=== PATIENT | female | born 1975 | race Hispanic/Latino ===

== ENCOUNTER → 2020-01-20 12:45 | Outpatient (ROUT) | payer OTHER, MEDICAID, SELFPAY ==
[2020-01-21 01:18] LABS: COVID19 Sendout Not Detected (Not Detect)
== END ==
PROVIDERS: Visit Provider Physician Assistant
DX: Z01.812 Encounter for preprocedural laboratory examination (principal)
CPT/HCPCS: 87635

== ENCOUNTER 2020-01-24 13:49 | Emergency (ER) | payer OTHER, MEDICAID, SELFPAY ==
[2020-01-24 13:55] VITALS: BP 142/71; PULSE 74; RESP 20; TEMP 36.7; O2SAT 98; BMI 38.3
--- NOTE | 2020-01-24 14:07 | DI.RAD.S_ITS ---
PROCEDURE: XR CHEST 2V INDICATIONS: shortness of breath TECHNIQUE: 2 views of the chest were acquired. COMPARISON: [facility], CR, XR CHEST 2 VIEWS, 11/18/2019, 14:06. FINDINGS: Surgical changes and devices: None. Lungs and pleura: Lungs are clear. No pleural effusions or pneumothorax. Mediastinum: Mediastinal contours are normal. Heart size is normal. Bones and chest wall: No suspicious bony abnormalities. Soft tissues appear unremarkable. IMPRESSION: Stable chest. No acute cardiopulmonary process is evident. Dictated by: Christopher Springer M.D. on 01/24/2020 at 13:30 Approved by: Christopher Springer M.D. on 01/24/2020 at 13:30
[2020-01-24 14:32] LABS: Add Manual Diff / Slide Review NO; Basophils Absolute Auto 0 /uL (0-100); Basophils Percent Auto 0.4 % (0-2); Eosinophils Absolute Auto 600 /uL (0-450); Eosinophils Percent Auto 7.9 % (2-4); Hematocrit 38.7 % (36-46); Lymphocytes Absolute Auto 3100 /uL (1100-4500); Lymphocytes Percent Auto 38.9 % (25-40); Mean Corpuscular HGB Conc 33.6 % (30-36); Mean Corpuscular Hemoglobin 29.6 PG (26-34); Mean Corpuscular Volume 88.1 fL (80-100); Monocytes Absolute Auto 600 /uL (0-900); Monocytes Percent Auto 8.1 % (3-14); Neutrophils Absolute Auto 3600 /uL (1500-7000); Neutrophils Percent Auto 44.7 % (50-75); Platelet Count 274 X10^3/uL (150-400); Red Blood Cell Count 4.39 X10^6/uL (4.0-5.2); Red Cell Distribution Width 13.3 % (11.6-14.8)
[2020-01-24 14:44] LABS: Alanine Aminotransferase 47 IU/L (<35); Albumin Globulin Ratio 1.3 (1.0-2.8); Alkaline Phosphatase 66 U/L (38-126); Aspartate Aminotransferase 41 IU/L (14-36); BUN Creatinine Ratio 16.4 (6-22); Bilirubin Total 0.5 mg/dL (0.2-1.3); Blood Urea Nitrogen 12 mg/dL (7-17); Calcium 9.2 mg/dL (8.4-10.2); Carbon Dioxide 26 mmol/L (22-32); Chloride 105 mmol/L (98-107); Creatine Kinase 109 U/L (30-135); Estimated Glomerular Filt Rate > 60.0 mL/min (>60); Globulin 3.1 g/dL (1.7-4.1); Glucose 114 mg/dL (70-100); HEMOLYSIS 44 (0-50); Potassium 4.2 mmol/L (3.4-5.1); Sodium 137 mmol/L (137-145); Total Protein 7.1 g/dL (6.3-8.2)
[2020-01-24 14:56] LABS: NT-proBNP (BNP-Adult 18+) 125 pg/mL (<125); Troponin I < 0.012 ng/mL (0.01-0.034)
[2020-01-24 14:59] LABS: CKMB % Relative Index 1.2 % (1.5-5.0); Creatine Kinase MB 1.33 ng/mL (<2.37)
[2020-01-24 15:00] VITALS: BP 142/67; PULSE 66; RESP 25; O2SAT 99
[2020-01-24 15:27] LABS: Bacteria Urine None Seen; RBC Urine None Seen (0-5/HPF); WBC Urine None Seen (0-5/HPF)
[2020-01-24 15:30] VITALS: BP 139/74; PULSE 60; RESP 23; O2SAT 96
[2020-01-24 15:37] LABS: Culture Indicated Urine Cult Not Indicated
[2020-01-24 15:42] LABS: TSH w/ Reflex to FT4 0.68 uIU/mL (0.47-4.68)
[2020-01-24 16:05] LABS: D Dimer < 200 ng/mL (<230)
[2020-01-24] MEDS: FUROSEMIDE 20 MG/2 ML VIAL IV (16:12)
[2020-01-24 16:53] VITALS: BP 153/73; PULSE 70; RESP 11; O2SAT 100
[2020-01-24 16:56] LABS: Creatine Kinase 106 U/L (30-135)
[2020-01-24 17:09] LABS: Troponin I < 0.012 ng/mL (0.01-0.034)
[2020-01-24 17:11] LABS: CKMB % Relative Index 1.3 % (1.5-5.0); Creatine Kinase MB 1.33 ng/mL (<2.37)
[2020-01-24 17:36] VITALS: BP 144/73; PULSE 68; RESP 17; O2SAT 97
[2020-01-24 18:00] VITALS: BP 153/80; PULSE 76; RESP 16; O2SAT 98
--- NOTE | 2020-01-24 20:27 | ED.SOB ---
HPI - SOB/Dyspnea <AUSTIN Monet - Last Filed: 01/24/20 20:35> General Chief Complaint: Shortness of Breath/Dyspnea Stated Complaint: sent from the [facility], SOB, fluid retention in legs Time Seen by Provider: 01/24/20 13:59 Source: patient Mode of arrival: Ambulatory Limitations: no limitations History of Present Illness HPI Narrative: The patient is a 44-year-old female nonsmoker with history of hypothyroid who presents with a chief complaint of shortness of breath as well as bilateral lower extremity swelling since Wednesday. She had this happen after she went on a camping trip, she states that was only up to [place]. She denies any flights immobility or cancer treatment. She has recently tested negative for coronavirus, as she was being worked up for sleep study. She denies any fevers chills. She denies any cough or congestion. She states she under large amount of stress at home right now. She has not taken anything to feel better. She has not noticed any edema anywhere else other than her feet. Related Data Previous Rx's Medication Instructions Recorded furosemide 20 mg PO QAM #14 tab 01/24/20 Allergies Allergy/AdvReac Type Severity Reaction Status Date / Time amoxicillin Allergy Unknown Verified 01/24/20 14:06 Penicillins Allergy Unknown Verified 01/24/20 14:06 Review of Systems <AUSTIN Monet - Last Filed: 01/24/20 20:35> Review of Systems Narrative: GENERAL: Denies chills, fatigue, malaise, fever, sweats. HEENT: Denies sinus pain, ear pain, sore throat, difficulty swallowing, dizziness. RESPIRATORY: See HPI CARDIOVASCULAR: Denies chest pain, palpitations, orthopnea, edema, GASTROINTESTINAL: Denies nausea, vomiting, abdominal pain, diarrhea, constipation, melena. : Denies dysuria, frequency, incontinence, hematuria, urinary retention. MUSCULOSKELETAL: See HPI SKIN: Denies rash, skin lesions, or other NEUROLOGIC: Denies weakness, headache, numbness, change in speech, confusion, seizures, incoordination. PSYCHIATRIC: No concerning psychosocial issues. 12 point review of systems is negative except for those stated above Patient History <AUSTIN Monet - Last Filed: 01/24/20 20:35> Medical History Endometrial adenocarcinoma (Acute) Excessive daytime sleepiness (Chronic) Fatigue (Chronic) GERD (gastroesophageal reflux disease) (Acute) Hypothyroidism (Chronic) Obstructive sleep apnea (Chronic) Perennial allergic rhinitis (Chronic) Surgical History History of radical hysterectomy (Acute) Social History Smoking Status: Former smoker Smoking Status: Former smoker alcohol intake frequency: 0-2 drinks per day Substance Use Type: does not use Exam <AUSTIN Monet - Last Filed: 01/24/20 20:35> Narrative Exam Narrative: GENERAL: This is a well-nourished, well-developed patient, in no acute distress HEAD: Atraumatic. Normocephalic. No temporal or scalp tenderness. EYES: Pupils equal round and reactive. Extraocular motions intact. No scleral icterus. No injection or drainage. ENT: Nose without bleeding, purulent drainage or septal hematoma.. Airway patent. NECK: Trachea midline. No JVD or lymphadenopathy. Supple, nontender, no meningeal signs. CARDIOVASCULAR: Regular rate and rhythm RESPIRATORY: Clear to auscultation. Breath sounds equal bilaterally. No wheezes, rales, or rhonchi. No cough. No increased respiratory effort. No accessory muscle use. GASTROINTESTINAL: Abdomen soft, non-tender, nondistended. No hepato-splenomegaly, or palpable masses. No guarding. EXTREMITIES: No clubbing, cyanosis, or edema. No joint tenderness, effusion, or edema noted. BACK: Nontender without deformity or crepitance. No flank tenderness. NEURO: AOx3. SKIN: No rash or erythema on visible skin Initial Vital Signs Initial Vital Signs: Vital Signs Temperature 98.1 F 01/24/20 13:55 Pulse Rate 74 01/24/20 13:55 Respiratory Rate 20 01/24/20 13:55 Blood Pressure 142/71 H 01/24/20 13:55 Pulse Oximetry 98 01/24/20 13:55 <Viv Orourke MD - Last Filed: 01/26/20 07:17> Initial Vital Signs Initial Vital Signs: Vital Signs Temperature 98.1 F 01/24/20 13:55 Pulse Rate 74 01/24/20 13:55 Respiratory Rate 20 01/24/20 13:55 Blood Pressure 142/71 H 01/24/20 13:55 Pulse Oximetry 98 01/24/20 13:55 Course <AUSTIN Monet - Last Filed: 01/24/20 20:35> Orders Ordered: Discontinued Medications Furosemide (Lasix) 20 mg IV NOW ONE Stop: 01/24/20 15:55 Last Admin: 01/24/20 16:12 Dose: 20 mg Documented by: RONAL Vital Signs Vital signs: Vital Signs - 8 hr 01/24/20 13:55 01/24/20 15:00 01/24/20 15:30 Temperature 98.1 F Pulse Rate 74 66 60 Respiratory Rate 20 25 H 23 Blood Pressure 142/71 H Blood Pressure [Left Arm] 142/67 H 139/74 Pulse Oximetry 98 99 96 01/24/20 16:53 01/24/20 17:36 01/24/20 18:00 Temperature Pulse Rate 70 68 76 Respiratory Rate 11 L 17 16 Blood Pressure Blood Pressure [Left Arm] 153/73 H 144/73 H 153/80 H Pulse Oximetry 100 97 98 <Viv Orourke MD - Last Filed: 01/26/20 07:17> Orders Ordered: Discontinued Medications Furosemide (Lasix) 20 mg IV NOW ONE Stop: 01/24/20 15:55 Last Admin: 01/24/20 16:12 Dose: 20 mg Documented by: RONAL Vital Signs Vital signs: Vital Signs - 8 hr 01/24/20 13:55 01/24/20 15:00 01/24/20 15:30 Temperature 98.1 F Pulse Rate 74 66 60 Respiratory Rate 20 25 H 23 Blood Pressure 142/71 H Blood Pressure [Left Arm] 142/67 H 139/74 Pulse Oximetry 98 99 96 01/24/20 16:53 01/24/20 17:36 01/24/20 18:00 Temperature Pulse Rate 70 68 76 Respiratory Rate 11 L 17 16 Blood Pressure Blood Pressure [Left Arm] 153/73 H 144/73 H 153/80 H Pulse Oximetry 100 97 98 MDM - SOB/Dyspnea <AUSTIN Monet - Last Filed: 01/24/20 20:35> Lab Data Attestation: I reviewed the patient's lab results. Result diagrams: 01/24/20 14:25 01/24/20 14:25 Labs: Lab Results 01/24/20 01/24/20 01/24/20 Range/Units 14:25 14:25 14:25 WBC 8.0 (4.5-11.0) X10^3/uL RBC 4.39 (4.0-5.2) X10^6/uL Hgb 13.0 (12.0-16.0) g/dL Hct 38.7 (36-46) % MCV 88.1 (80-100) fL MCH 29.6 (26-34) PG MCHC 33.6 (30-36) % RDW 13.3 (11.6-14.8) % Plt Count 274 (150-400) X10^3/uL Neut % (Auto) 44.7 L (50-75) % Lymph % (Auto) 38.9 (25-40) % Bertie % (Auto) 8.1 (3-14) % Eos % (Auto) 7.9 H (2-4) % Baso % (Auto) 0.4 (0-2) % Neut # (Auto) 3600 (9676-2809) /uL Lymph # (Auto) 3100 (1821-0854) /uL Bertie # (Auto) 600 (0-900) /uL Eos # (Auto) 600 H (0-450) /uL Baso # (Auto) 0 (0-100) /uL D-Dimer (<230) ng/mL Sodium 137 (137-145) mmol/L Potassium 4.2 (3.4-5.1) mmol/L Chloride 105 (98-107) mmol/L Carbon Dioxide 26 (22-32) mmol/L BUN 12 (7-17) mg/dL Creatinine 0.73 (0.52-1.04) mg/dL Estimated GFR > 60.0 (>60) mL/min BUN/Creatinine Ratio 16.4 (6-22) Glucose 114 H (70-100) mg/dL Calcium 9.2 (8.4-10.2) mg/dL Total Bilirubin 0.5 (0.2-1.3) mg/dL AST 41 H (14-36) IU/L ALT 47 H (<35) IU/L Alkaline Phosphatase 66 (38-126) U/L Total Creatine Kinase 109 (30-135) U/L CK-MB (CK-2) 1.33 (<2.37) ng/mL CK-MB (CK-2) Rel Index 1.2 L (1.5-5.0) % Troponin I < 0.012 (0.01-0.034) ng/mL NT-Pro-B Natriuret Pep 125 H (<125) pg/mL Total Protein 7.1 (6.3-8.2) g/dL Albumin 4.0 (3.5-5.0) g/dL Globulin 3.1 (1.7-4.1) g/dL Albumin/Globulin Ratio 1.3 (1.0-2.8) TSH 0.68 (0.47-4.68) uIU/mL Urine RBC (0-5/HPF) Urine WBC (0-5/HPF) Urine Bacteria (None) Ur Culture Indicated? 01/24/20 01/24/20 01/24/20 Range/Units 14:25 14:25 16:38 WBC (4.5-11.0) X10^3/uL RBC (4.0-5.2) X10^6/uL Hgb (12.0-16.0) g/dL Hct (36-46) % MCV (80-100) fL MCH (26-34) PG MCHC (30-36) % RDW (11.6-14.8) % Plt Count (150-400) X10^3/uL Neut % (Auto) (50-75) % Lymph % (Auto) (25-40) % Bertie % (Auto) (3-14) % Eos % (Auto) (2-4) % Baso % (Auto) (0-2) % Neut # (Auto) (9783-6232) /uL Lymph # (Auto) (2523-2251) /uL Bertie # (Auto) (0-900) /uL Eos # (Auto) (0-450) /uL Baso # (Auto) (0-100) /uL D-Dimer < 200 (<230) ng/mL Sodium (137-145) mmol/L Potassium (3.4-5.1) mmol/L Chloride (98-107) mmol/L Carbon Dioxide (22-32) mmol/L BUN (7-17) mg/dL Creatinine (0.52-1.04) mg/dL Estimated GFR (>60) mL/min BUN/Creatinine Ratio (6-22) Glucose (70-100) mg/dL Calcium (8.4-10.2) mg/dL Total Bilirubin (0.2-1.3) mg/dL AST (14-36) IU/L ALT (<35) IU/L Alkaline Phosphatase (38-126) U/L Total Creatine Kinase 106 (30-135) U/L CK-MB (CK-2) 1.33 (<2.37) ng/mL CK-MB (CK-2) Rel Index 1.3 L (1.5-5.0) % Troponin I < 0.012 (0.01-0.034) ng/mL NT-Pro-B Natriuret Pep (<125) pg/mL Total Protein (6.3-8.2) g/dL Albumin (3.5-5.0) g/dL Globulin (1.7-4.1) g/dL Albumin/Globulin Ratio (1.0-2.8) TSH (0.47-4.68) uIU/mL Urine RBC None seen (0-5/HPF) Urine WBC None seen (0-5/HPF) Urine Bacteria None seen (None) Ur Culture Indicated? Cult not indicated Urine Dip Bedside Urine Glucose Negative Bedside Urine Bilirubin - Negative Bedside Urine Ketone - Negative Urine Specific [place] 1.010 Bedside Urine Occult Blood +/- Bedside Urine pH 6.5 Bedside Urine Protein - Negative Bedside Urine Urobilinogen - Negative Bedside Urine Nitrite - Negative Bedside Urine Leukocytes - Negative Esterase Imaging Data Chest x-ray: Radiologist's Impression: [address] [place] [id number] XRay Report Signed Patient: Brooklynn Blanco [facility]#: [id number] : 1975Acct:[id number] Age/Sex: 44 / FDate of Service: 01/24/20 Loc: ED Accession Number: [id number] Procedure: XR chest 2V Ordering Provider: Elsa Otero- PROCEDURE: XR CHEST 2V INDICATIONS: shortness of breath TECHNIQUE: 2 views of the chest were acquired. COMPARISON: [facility], CR, XR CHEST 2 VIEWS, 11/18/2019, 14:06. FINDINGS: Surgical changes and devices: None. Lungs and pleura: Lungs are clear. No pleural effusions or pneumothorax. Mediastinum: Mediastinal contours are normal. Heart size is normal. Bones and chest wall: No suspicious bony abnormalities. Soft tissues appear unremarkable. IMPRESSION: Stable chest. No acute cardiopulmonary process is evident. Dictated by: Christopher Springer M.D. on 01/24/2020 at 13:30 Approved by: Christopher Springer M.D. on 01/24/2020 at 13:30 MDM Narrative Medical decision making narrative: The patient is a 44-year-old female who presents with a chief complaint of shortness of breath is bending worse over the past several days as well as bilateral pedal edema. She is normotensive, nontoxic appearing throughout her stay in the emergency department. She has no chest pain. D-dimer is negative. Chest x-ray is negative. Initial troponin as well as to her repeat troponin is negative. Given her edema on exam, we did a trial of Lasix in the emergency department responded well. I discussed at length the importance of following up with primary care provider, she will probably need further monitoring and lab work. Her BNP is not grossly elevated in the emergency department, I discussed the fact that she will need electrolyte monitoring. Discussed at length coming back to the emergency department for any acute concerns including chest pain, shortness of breath etcetera. <Viv Orourke MD - Last Filed: 01/26/20 07:17> Lab Data Labs: Lab Results 01/24/20 01/24/20 01/24/20 Range/Units 14:25 14:25 14:25 WBC 8.0 (4.5-11.0) X10^3/uL RBC 4.39 (4.0-5.2) X10^6/uL Hgb 13.0 (12.0-16.0) g/dL Hct 38.7 (36-46) % MCV 88.1 (80-100) fL MCH 29.6 (26-34) PG MCHC 33.6 (30-36) % RDW 13.3 (11.6-14.8) % Plt Count 274 (150-400) X10^3/uL Neut % (Auto) 44.7 L (50-75) % Lymph % (Auto) 38.9 (25-40) % Bertie % (Auto) 8.1 (3-14) % Eos % (Auto) 7.9 H (2-4) % Baso % (Auto) 0.4 (0-2) % Neut # (Auto) 3600 (8952-8522) /uL Lymph # (Auto) 3100 (2914-1048) /uL Bertie # (Auto) 600 (0-900) /uL Eos # (Auto) 600 H (0-450) /uL Baso # (Auto) 0 (0-100) /uL D-Dimer (<230) ng/mL Sodium 137 (137-145) mmol/L Potassium 4.2 (3.4-5.1) mmol/L Chloride 105 (98-107) mmol/L Carbon Dioxide 26 (22-32) mmol/L BUN 12 (7-17) mg/dL Creatinine 0.73 (0.52-1.04) mg/dL Estimated GFR > 60.0 (>60) mL/min BUN/Creatinine Ratio 16.4 (6-22) Glucose 114 H (70-100) mg/dL Calcium 9.2 (8.4-10.2) mg/dL Total Bilirubin 0.5 (0.2-1.3) mg/dL AST 41 H (14-36) IU/L ALT 47 H (<35) IU/L Alkaline Phosphatase 66 (38-126) U/L Total Creatine Kinase 109 (30-135) U/L CK-MB (CK-2) 1.33 (<2.37) ng/mL CK-MB (CK-2) Rel Index 1.2 L (1.5-5.0) % Troponin I < 0.012 (0.01-0.034) ng/mL NT-Pro-B Natriuret Pep 125 H (<125) pg/mL Total Protein 7.1 (6.3-8.2) g/dL Albumin 4.0 (3.5-5.0) g/dL Globulin 3.1 (1.7-4.1) g/dL Albumin/Globulin Ratio 1.3 (1.0-2.8) TSH 0.68 (0.47-4.68) uIU/mL Urine RBC (0-5/HPF) Urine WBC (0-5/HPF) Urine Bacteria (None) Ur Culture Indicated? 01/24/20 01/24/20 01/24/20 Range/Units 14:25 14:25 16:38 WBC (4.5-11.0) X10^3/uL RBC (4.0-5.2) X10^6/uL Hgb (12.0-16.0) g/dL Hct (36-46) % MCV (80-100) fL MCH (26-34) PG MCHC (30-36) % RDW (11.6-14.8) % Plt Count (150-400) X10^3/uL Neut % (Auto) (50-75) % Lymph % (Auto) (25-40) % Bertie % (Auto) (3-14) % Eos % (Auto) (2-4) % Baso % (Auto) (0-2) % Neut # (Auto) (9812-7629) /uL Lymph # (Auto) (6200-4400) /uL Bertie # (Auto) (0-900) /uL Eos # (Auto) (0-450) /uL Baso # (Auto) (0-100) /uL D-Dimer < 200 (<230) ng/mL Sodium (137-145) mmol/L Potassium (3.4-5.1) mmol/L Chloride (98-107) mmol/L Carbon Dioxide (22-32) mmol/L BUN (7-17) mg/dL Creatinine (0.52-1.04) mg/dL Estimated GFR (>60) mL/min BUN/Creatinine Ratio (6-22) Glucose (70-100) mg/dL Calcium (8.4-10.2) mg/dL Total Bilirubin (0.2-1.3) mg/dL AST (14-36) IU/L ALT (<35) IU/L Alkaline Phosphatase (38-126) U/L Total Creatine Kinase 106 (30-135) U/L CK-MB (CK-2) 1.33 (<2.37) ng/mL CK-MB (CK-2) Rel Index 1.3 L (1.5-5.0) % Troponin I < 0.012 (0.01-0.034) ng/mL NT-Pro-B Natriuret Pep (<125) pg/mL Total Protein (6.3-8.2) g/dL Albumin (3.5-5.0) g/dL Globulin (1.7-4.1) g/dL Albumin/Globulin Ratio (1.0-2.8) TSH (0.47-4.68) uIU/mL Urine RBC None seen (0-5/HPF) Urine WBC None seen (0-5/HPF) Urine Bacteria None seen (None) Ur Culture Indicated? Cult not indicated Urine Dip Bedside Urine Glucose Negative Bedside Urine Bilirubin - Negative Bedside Urine Ketone - Negative Urine Specific [place] 1.010 Bedside Urine Occult Blood +/- Bedside Urine pH 6.5 Bedside Urine Protein - Negative Bedside Urine Urobilinogen - Negative Bedside Urine Nitrite - Negative Bedside Urine Leukocytes - Negative Esterase Discharge Plan Departure Patient Disposition: Home Clinical Impression: Shortness of Breath, Edema, peripheral Discharge Date/Time: 01/24/20 18:14 Instructions: DI for Shortness of Breath, DI for Peripheral Edema -- Bilateral Activity Restrictions/Additional Instructions: Thank you for trusting us with your care today. I sent a prescription of Lasix to [facility]. Take this once a day. This should help get rid of the fluid in your legs. Please follow-up with primary care provider in the next few days. You will likely need further lab work and imaging. I have given you contact information [facility] resource economist in case you need help locating a local one. Please come back to the emergency department for any acute concerns such as concern of heart attack or stroke, etcetera Prescriptions: New furosemide 20 mg tablet 20 mg PO QAM Qty: 14 RF: 0 Referrals: [facility] [Outside] <Viv Orourke MD - Last Filed: 01/26/20 07:17> Cosign ED Attending Cosignature Attestation: I was immediately available in the department for consultation throughout this patient's visit. I agree with documentation as above. Viv Orourke MD
--- NOTE | 2020-01-24 20:37 | PC.NURSE ---
Late and wrong patient entry. Glucose level was entered on the wrong patient. Abdi Blanco
--- NOTE | 2020-01-24 20:40 | PC.NURSE ---
critical value was inprinted on the wrong patient co2 and glucose was not measured on this patient
== END 2020-01-24 18:14 | disposition home or self-care (01) ==
PROVIDERS: Emergency Provider Nurse Practitioner Family
DX: R06.02 Shortness of breath (principal); R60.9 Edema, unspecified
CPT/HCPCS: 36415; 71046; 80053; 81003; 81015; 82550; 82553; 83880; 84443; 84484; 85025; 85379; 93005; 96374; 99284; J1940

== ENCOUNTER → 2020-02-23 08:48 | Outpatient (CLI) | payer OTHER, MEDICAID, SELFPAY ==
[2020-02-23 10:01] LABS: Hemoglobin A1C% w Est Avg Glu 6.1 % (4.0-6.0)
[2020-02-23 10:02] LABS: Alanine Aminotransferase 60 IU/L (<35); Albumin 4.1 g/dL (3.5-5.0); Albumin Globulin Ratio 1.5 (1.0-2.8); Alkaline Phosphatase 83 U/L (38-126); Aspartate Aminotransferase 45 IU/L (14-36); BUN Creatinine Ratio 22.7 (6-22); Bilirubin Total 0.5 mg/dL (0.2-1.3); Blood Urea Nitrogen 15 mg/dL (7-17); Calcium 9.1 mg/dL (8.4-10.2); Carbon Dioxide 23 mmol/L (22-32); Chloride 106 mmol/L (98-107); Cholesterol 174 mg/dL (140-199); Estimated Glomerular Filt Rate > 60.0 mL/min (>60); Globulin 2.8 g/dL (1.7-4.1); Glucose 97 mg/dL (70-100); HDL Cholesterol 60 mg/dL (40-60); HEMOLYSIS < 15 (0-50); LDL Cholesterol Calculated 88 mg/dL (<100); Potassium 4.3 mmol/L (3.4-5.1); Sodium 136 mmol/L (137-145); Total Protein 6.9 g/dL (6.3-8.2); Triglycerides 129 mg/dL (35-150)
[2020-02-23 10:09] LABS: NT-proBNP (BNP-Adult 18+) 62 pg/mL (<125)
== END ==
PROVIDERS: Referring Provider Registered Nurse Diabetes Educator; Visit Provider Registered Nurse Diabetes Educator
DX: R06.02 Shortness of breath (principal); R60.9 Edema, unspecified
CPT/HCPCS: 36415; 80053; 80061; 83036; 83880

== ENCOUNTER → 2020-03-11 13:00 | Outpatient (CLI) | payer OTHER, MEDICAID, SELFPAY ==
[2020-03-11 14:16] LABS: HEMOLYSIS < 15 (0-50); Iron 130 ug/dL (37-170)
[2020-03-11 14:18] LABS: BUN Creatinine Ratio 21.7 (6-22); Blood Urea Nitrogen 15 mg/dL (7-17); Calcium 9.6 mg/dL (8.4-10.2); Carbon Dioxide 25 mmol/L (22-32); Chloride 104 mmol/L (98-107); Estimated Glomerular Filt Rate > 60.0 mL/min (>60); Glucose 101 mg/dL (70-100); HEMOLYSIS < 15 (0-50); Potassium 4.2 mmol/L (3.4-5.1); Sodium 137 mmol/L (137-145)
[2020-03-11 14:27] LABS: Percent Iron Saturation 36 % (15-50); Total Iron Binding Capacity 365 ug/dL (265-497); Transferrin 290 mg/dL (206-381)
[2020-03-11 14:51] LABS: Ferritin 261 ng/mL (6-137)
[2020-03-11 15:34] LABS: Hepatitis B Surface Antigen NEGATIVE s/c (NEGATIVE)
[2020-03-11 15:54] LABS: Hep C Virus Ab w/Reflex Quant NEGATIVE s/c (NEGATIVE)
[2020-03-12 05:10] LABS: Hepatitis B Core AB w/Reflex Negative (Negative)
[2020-03-12 05:37] LABS: Hepatitis B Surf Ab Qualitativ Reactive (.)
== END ==
PROVIDERS: Referring Provider Registered Nurse Diabetes Educator; Visit Provider Registered Nurse Diabetes Educator
DX: R74.8 Abnormal levels of other serum enzymes (principal); R60.9 Edema, unspecified
CPT/HCPCS: 36415; 80048; 82728; 83540; 83550; 86704; 86706; 86803; 87340

== ENCOUNTER → 2020-03-12 09:55 | Outpatient (CLI) | payer OTHER, MEDICAID, SELFPAY ==
--- NOTE | 2020-03-12 09:56 | DI.US.S_ITS ---
PROCEDURE: US ABDOMEN LIMITED INDICATIONS: ELEVATED LFTS TECHNIQUE: Real-time focused scanning was performed of the abdomen, with image documentation. COMPARISON: None. FINDINGS: Liver is normal in size. Liver is echogenic. No focal hepatic mass lesions. Gallbladder is sonographically normal. No gallstones. No gallbladder wall thickening. No pericholecystic fluid. No sonographic Terry sign. Biliary tree is nondilated. Common bile duct measures 5.4 millimeters. Pancreas is sonographically normal. IMPRESSION: Echogenic liver. Finding typically represents fatty infiltration; however, finding is nonspecific and correlation with clinical and laboratory findings is recommended to exclude other etiologies including hepatic cirrhosis. Dictated by: Yazmin Owen MD, PhD on 03/12/2020 at 17:20 Approved by: Yamzin Owen MD, PhD on 03/12/2020 at 17:21
== END ==
PROVIDERS: Referring Provider Registered Nurse Diabetes Educator; Visit Provider Registered Nurse Diabetes Educator
DX: R74.8 Abnormal levels of other serum enzymes (principal)
CPT/HCPCS: 76705

== ENCOUNTER → 2020-03-19 12:06 | Outpatient (CLI) | payer OTHER, MEDICAID, SELFPAY ==
--- NOTE | 2020-03-19 12:08 | DIET.PN ---
Dietary Progress Note Assessment: 44y F referred to nutrition for weight management, LLE, NAFLD, preDM (A1c 6.1) recently got bikes for family (15, 8y) rides trails every other day 30-40 minutes Usual Day (work days are different than home) wakes 10am 1pm brunch: sandwich-turkey, cheddar, jean-baptiste, pickles, honey wheat or sourdough, glass almond milk (sweetened vanilla) sometimes side of something like sun chips Dinner 530: potstickers, steamed rice, veggies; spaghetti and meatballs; salad mixed green c corn or parmesan cheese, nuts stays up until 2am, feels hungry around 11pm: nuts-peanuts, fruit-banana, cereal c almond milk, yogurt-or a couple during this time period, vitamin water, ice water Workday: B (830): coffee c cream, sugar, 2 scoops cheese eggs L(noon): [employer] entree or brings salad from home D: same as above NO: red meats and sausage/avila, fried foods, citrus gives indegestion/GERD no current etoh use, not much before would like to do yoga/pilates classes and join a club HT: 5'3 WT: 215# Goal is to lose 15# BMI: 38.1 Labs: A1c 6.1, LFTs elevated Nutrition Diagnosis: obesity r/t undesirable food choices and physical inactivity aeb A1c indicating preDM, NAFLD, BMI 38.1, pt recently started bicycling c family but no other physical activity, pt not following specific food plan. Interventions: 1. To heal liver and increase insulin sensitivity, pt will do 13h Intermittent Fasting overnight at least 5d/w. 2. Pt will continue biking with family and incorporate yoga/pilates 2d/w for strength training. When rainy season comes, pt will go to gym and do cycles of 10min each treadmill, bike, elliptical. 3. To support body and reduce water retention/LLE, pt will continue to limit sodium to 2g/d by purchasing only No Sodium canned and packaged foods and limiting salt at the table. 4. To support NAFLD, weight loss, and pre-DM, t will use plate method and stick to 30g/meal carb consistent diet focusing on less processed foods. 5. Pt can experiement with the book Acid Watchers Diet to help GERD. Monitoring/Evaluations: f/u as desired
== END ==
PROVIDERS: PCP Registered Nurse Diabetes Educator; Referring Provider Registered Nurse Diabetes Educator; Visit Provider Registered Nurse Diabetes Educator
DX: E66.9 Obesity, unspecified (principal); R73.03 Prediabetes; Z68.38 Body mass index [BMI] 38.0-38.9, adult; Z71.3 Dietary counseling and surveillance
CPT/HCPCS: 97802

== ENCOUNTER → 2020-08-09 09:46 | Outpatient (CLI) | payer OTHER, MEDICAID, SELFPAY ==
[2020-08-09] MEDS: COVID-19 VACC(MODERNA-1)/PF 100 MCG/0.5 ML VIAL IM (09:52)
== END ==
PROVIDERS: PCP Registered Nurse Diabetes Educator; Visit Provider Internal Medicine
DX: Z23 Encounter for immunization (principal)
CPT/HCPCS: 0011A; 91301

== ENCOUNTER → 2020-09-05 12:11 | Outpatient (CLI) | payer OTHER, MEDICAID, SELFPAY ==
[2020-09-05] MEDS: COVID-19 VACC #2, MRNA(MOD) 100 MCG/0.5 ML VIAL IM (12:14)
== END ==
PROVIDERS: PCP Registered Nurse Diabetes Educator; Visit Provider Internal Medicine
DX: Z23 Encounter for immunization (principal)
CPT/HCPCS: 0012A; 91301

== ENCOUNTER 2020-09-26 16:39 | Emergency (ER) | payer OTHER, MEDICAID, SELFPAY ==
[2020-09-26 16:47] VITALS: BP 133/64; PULSE 73; RESP 16; TEMP 36.9; O2SAT 96; BMI 35.4
--- NOTE | 2020-09-26 16:51 | DI.RAD.S_ITS ---
PROCEDURE: XR CHEST 1V INDICATIONS: Shortness of breath TECHNIQUE: One view of the chest was acquired. COMPARISON: [facility], CR, XR CHEST 2V, 01/24/2020, 14:01. FINDINGS: Surgical changes and devices: None. Lungs and pleura: Lungs are clear. No pleural effusions or pneumothorax. Mediastinum: Mediastinal contours appear normal. Heart size is normal. Bones and chest wall: No suspicious bony lesions. Overlying soft tissues appear unremarkable. IMPRESSION: No acute disease. Dictated by: Donald Rdz M.D. on 09/26/2020 at 17:18 Approved by: Donald Rdz M.D. on 09/26/2020 at 17:19
[2020-09-26 17:04] VITALS: PULSE 69; O2SAT 98
[2020-09-26 17:06] LABS: Add Manual Diff / Slide Review NO; Basophils Absolute Auto 0 /uL (0-100); Basophils Percent Auto 0.5 % (0-2); Eosinophils Absolute Auto 500 /uL (0-450); Hematocrit 43.8 % (36-46); Hemoglobin 14.6 g/dL (12.0-16.0); Lymphocytes Absolute Auto 3500 /uL (1100-4500); Lymphocytes Percent Auto 41.5 % (25-40); Mean Corpuscular HGB Conc 33.4 % (30-36); Mean Corpuscular Hemoglobin 29.2 PG (26-34); Mean Corpuscular Volume 87.6 fL (80-100); Monocytes Absolute Auto 600 /uL (0-900); Neutrophils Absolute Auto 3800 /uL (1500-7000); Platelet Count 349 X10^3/uL (150-400); Red Cell Distribution Width 13.6 % (11.6-14.8); White Blood Cell Count 8.4 X10^3/uL (4.5-11.0)
[2020-09-26 17:10] LABS: Alanine Aminotransferase 40 IU/L (<35); Albumin 4.5 g/dL (3.5-5.0); Albumin Globulin Ratio 1.2 (1.0-2.8); Alkaline Phosphatase 92 U/L (38-126); Aspartate Aminotransferase 33 IU/L (14-36); BUN Creatinine Ratio 24.3 (6-22); Bilirubin Total 0.4 mg/dL (0.2-1.3); Blood Urea Nitrogen 18 mg/dL (7-17); Calcium 9.2 mg/dL (8.4-10.2); Carbon Dioxide 30 mmol/L (22-32); Chloride 103 mmol/L (98-107); Creatine Kinase 94 U/L (30-135); Estimated Glomerular Filt Rate > 60.0 mL/min (>60); Globulin 3.8 g/dL (1.7-4.1); Glucose 102 mg/dL (70-100); HEMOLYSIS < 15 (0-50); Lipase 83 U/L (23-300); Potassium 4.1 mmol/L (3.4-5.1); Sodium 137 mmol/L (137-145); Total Protein 8.3 g/dL (6.3-8.2)
--- NOTE | 2020-09-26 17:21 | ED.GENADULT ---
HPI - General Adult General Chief complaint: Shortness of Breath/Dyspnea Stated complaint: dizzy,SOB,headache, swelling in legs, wheezing Time Seen by Provider: 09/26/20 16:50 Source: patient Mode of arrival: Ambulatory Limitations: no limitations History of Present Illness HPI narrative: 45-year-old female here for multiple symptoms to include shortness of breath and headache and sinus congestion and swelling in her lower extremities. She states she has had edema in the past and does have Lasix at home when she took a dose earlier today but did not feel that it helped all that much. She also has Zyrtec and Flonase at home which she has not taken for the sinus congestion and headache. Related Data Home Medications Medication Instructions Recorded Confirmed estradiol 1 mg tablet 1 mg PO DAILY 02/05/20 07/03/20 montelukast PO 02/05/20 07/03/20 Previous Rx's Medication Instructions Recorded clindamycin phosphate 1 % topical 1 applictn TOP BID #60 ml 02/05/20 solution furosemide 20 mg tablet 20 mg PO QAM #30 tab 03/06/20 omeprazole 20 mg capsule,delayed 20 mg PO DAILY #30 cap 08/23/20 release albuterol sulfate 90 mcg/actuation 2 inh INHALATION Q4-6H PRN #1 ea 09/25/20 breath activated powder inhaler cetirizine 10 mg capsule 10 mg PO DAILY #30 cap 09/25/20 Allergies Allergy/AdvReac Type Severity Reaction Status Date / Time amoxicillin Allergy Unknown Verified 09/26/20 16:50 Penicillins Allergy Unknown Verified 09/26/20 16:50 Review of Systems Constitutional Constitutional: Denies chills, Denies fever(s) and Reports headache(s) ENT Ears, Nose, Mouth, and Throat: Reports headache(s) Cardiovascular Cardiovascular: Denies chest pain and Reports dyspnea Respiratory Respiratory: Reports cough, Reports dyspnea and Reports wheezing Gastrointestinal Gastrointestinal: Denies abdominal pain, Denies nausea and Denies vomiting Genitourinary Genitourinary: Denies dysuria Genitourinary: Denies dysuria Musculoskeletal Comments: Lower extremity edema Integumentary/Breasts Skin/Breast: Denies rash Neurologic Neurologic: Denies behavioral changes and Reports headache(s) Psychiatric Psychiatric: Denies behavioral changes Hematologic/Lymphatic On Anticoagulants: No Allergic/Immunologic Allergic/Immunologic: Denies urticaria and Reports wheezing Patient History Medical History Elevated liver enzymes Endometrial adenocarcinoma Excessive daytime sleepiness Fatigue GERD (gastroesophageal reflux disease) Hypothyroidism Impaired fasting blood sugar NAFLD (nonalcoholic fatty liver disease) Obesity (BMI 30-39.9) Obstructive sleep apnea Perennial allergic rhinitis Peripheral edema Snoring Surgical History History of radical hysterectomy Family History Other Obstructive sleep apnea Social History Smoking Status: Current some day smoker second hand exposure: Yes alcohol intake: current substance use type: does not use Smoking Status: Current some day smoker tobacco type: vaping alcohol intake frequency: 0-2 drinks per day Substance Use Type: does not use Exam Initial Vital Signs Initial Vital Signs: Vital Signs Temperature 98.4 F 09/26/20 16:47 Pulse Rate 73 09/26/20 16:47 Respiratory Rate 16 09/26/20 16:47 Blood Pressure 133/64 09/26/20 16:47 Pulse Oximetry 96 09/26/20 16:47 Const General: cooperative, healthy appearing, comfortable and well developed HENFL Head: normal to inspection and normocephalic Ears: other (TMs bulging bilaterally without erythema) Mouth: oral mucosae normal Throat: posterior oropharynx normal Resp Effort & Inspection: normal respiratory effort Auscultation: wheezes Cardio Rate: regular rate Rhythm: regular rhythm Skin Lesions: no lesions Rashes: no rashes Neuro General: patient alert, patient awake and patient oriented x3 Cognition: normal cognition Speech: speech normal Extrem General: edema (1+ bilateral lower extremity) Psych Appearance: grossly normal and well kempt Scores GCS [place] coma scale eye opening: Spontaneous Jill coma scale verbal response: Orientated [place] coma scale motor response: Obey commands [place] coma scale total score: 15 Course Orders Ordered: ED Orders 09/26/20 16:51 XR chest 1V Stat EKG-12 Lead Stat 09/26/20 16:55 Complete Blood Count AUTO DIFF Stat Comprehensive Metabolic Panel Stat Lipase Stat Troponin & CK Cardiac Panel Stat 09/26/20 18:02 Urine Microscopic Stat Vital Signs Vital signs: Vital Signs - 8 hr 09/26/20 16:47 09/26/20 17:04 09/26/20 17:30 Temperature 98.4 F Pulse Rate 73 69 68 Respiratory Rate 16 15 Blood Pressure 133/64 144/67 H Pulse Oximetry 96 98 99 09/26/20 17:49 09/26/20 18:00 Temperature Pulse Rate 70 76 Respiratory Rate 24 18 Blood Pressure 141/67 H 139/65 Pulse Oximetry 99 99 Medical Decision Making Lab Data Lab results reviewed: Yes I reviewed the patient's lab results. Result diagrams: 09/26/20 16:55 09/26/20 16:55 Labs: Lab Results 09/26/20 09/26/20 09/26/20 Range/Units 16:55 16:55 18:02 WBC 8.4 (4.5-11.0) X10^3/uL RBC 5.00 (4.0-5.2) X10^6/uL Hgb 14.6 (12.0-16.0) g/dL Hct 43.8 (36-46) % MCV 87.6 (80-100) fL MCH 29.2 (26-34) PG MCHC 33.4 (30-36) % RDW 13.6 (11.6-14.8) % Plt Count 349 (150-400) X10^3/uL Neut % (Auto) 45.0 L (50-75) % Lymph % (Auto) 41.5 H (25-40) % [place] % (Auto) 7.0 (3-14) % Eos % (Auto) 6.0 H (2-4) % Baso % (Auto) 0.5 (0-2) % Neut # (Auto) 3800 (3727-8498) /uL Lymph # (Auto) 3500 (8750-2430) /uL [place] # (Auto) 600 (0-900) /uL Eos # (Auto) 500 H (0-450) /uL Baso # (Auto) 0 (0-100) /uL Sodium 137 (137-145) mmol/L Potassium 4.1 (3.4-5.1) mmol/L Chloride 103 (98-107) mmol/L Carbon Dioxide 30 (22-32) mmol/L BUN 18 H (7-17) mg/dL Creatinine 0.74 (0.52-1.04) mg/dL Estimated GFR > 60.0 (>60) mL/min BUN/Creatinine Ratio 24.3 H (6-22) Glucose 102 H (70-100) mg/dL Calcium 9.2 (8.4-10.2) mg/dL Total Bilirubin 0.4 (0.2-1.3) mg/dL AST 33 (14-36) IU/L ALT 40 H (<35) IU/L Alkaline Phosphatase 92 (38-126) U/L Total Creatine Kinase 94 (30-135) U/L CK-MB (CK-2) TNP CK-MB (CK-2) Rel Index TNP Troponin I < 0.012 (0.01-0.034) ng/mL Total Protein 8.3 H (6.3-8.2) g/dL Albumin 4.5 (3.5-5.0) g/dL Globulin 3.8 (1.7-4.1) g/dL Albumin/Globulin Ratio 1.2 (1.0-2.8) Lipase 83 (23-300) U/L Urine RBC 0-1/hpf (0-5/HPF) Urine WBC 0-1/hpf (0-5/HPF) Ur Squamous Epith Cells 0-1 /hpf (0-5/HPF) Urine Bacteria None seen (None) Ur Culture Indicated? Cult not indicated Urine Dip Bedside Urine Glucose Negative Bedside Urine Bilirubin - Negative Bedside Urine Ketone - Negative Urine Specific [place] 1.025 Bedside Urine Occult Blood +/- Bedside Urine pH 6 Bedside Urine Protein - Negative Bedside Urine Urobilinogen - Negative Bedside Urine Nitrite - Negative Bedside Urine Leukocytes - Negative Esterase Point of care testing: Urine Dip Bedside Urine Glucose Negative Bedside Urine Bilirubin - Negative Bedside Urine Ketone - Negative Urine Specific [place] 1.025 Bedside Urine Occult Blood +/- Bedside Urine pH 6 Bedside Urine Protein - Negative Bedside Urine Urobilinogen - Negative Bedside Urine Nitrite - Negative Bedside Urine Leukocytes - Negative Esterase Imaging Data Chest x-ray: Radiologist's Impression: [address] [id number] ReportSigned Patient: Brooklynn Blanco [facility]#: [id number]: 1975Acct:[id number]/Sex: 45 / FDate of Service: 09/26/20Loc: EDAccession Number: [id number] Procedure: XR chest 1V Ordering Provider: Gopal Sheehan D.O. PROCEDURE: XR CHEST 1V INDICATIONS: Shortness of breath TECHNIQUE: One view of the chest was acquired. COMPARISON: [facility], , XR CHEST 2V, 01/24/2020, 14:01. FINDINGS: Surgical changes and devices: None. Lungs and pleura: Lungs are clear. No pleural effusions or pneumothorax. Mediastinum: Mediastinal contours appear normal. Heart size is normal. Bones and chest wall: No suspicious bony lesions. Overlying soft tissues appear unremarkable. IMPRESSION: No acute disease. Dictated by: Donald Rdz M.D. on 09/26/2020 at 17:18 Approved by: Donald Rdz M.D. on 09/26/2020 at 17:19 ECG Data Attestation: I personally reviewed and interpreted this ECG as follows: Prior ECG tracings: not available for review Interpretation: Sinus rhythm Ventricular rate is 60 Normal axis Normal QRS Normal QTC No ST T wave changes MDM Narrative Medical decision making narrative: Patient's workup here in the emergency department unremarkable except for findings in the emergency department that are consistent with an upper respiratory infection. Patient has no indication of heart failure. She does have 1+ bilateral lower extremity edema which admitting that probably would not have even notice that the patient not expressed the complaint. She does have Lasix at home. She also has Zyrtec and Flonase at home. She did have wheezing initially which cleared with the use of her home albuterol oral inhaler. I feel we can hold on further workup for now. She is given return precautions and follow-up instructions. She expressed understanding and agreement. Discharge Plan Departure Patient Disposition: Home Clinical Impression: Congestion of nasal sinus, Diffuse wheezing, Edema of lower extremity Instructions: Antihistamine/Decongestant (By mouth) Activity Restrictions/Additional Instructions: Use the decongestant such as Zyrtec and Flonase that she have at home as directed. Also recommend that you use your albuterol inhaler as needed. Also use the Lasix that you have a prescription at home for. Contact her primary provider for follow-up. Return to the emergency department for any new or worsening symptoms Prescriptions: No Action omeprazole 20 mg capsule,delayed release(DR/EC) 20 mg PO DAILY Qty: 30 RF: 2 albuterol sulfate 90 mcg/actuation aerosol powdr breath activated 2 inh INHALATION Q4-6H PRN (Reason: shortness of breath or wheezing) Qty: 1 RF: 3 Zyrtec 10 mg capsule 10 mg PO DAILY Qty: 30 RF: 11 clindamycin phosphate 1 % solution 1 applictn TOP BID Qty: 60 RF: 5 estradiol 1 mg tablet 1 mg PO DAILY RF: 0 montelukast PO RF: 0 furosemide 20 mg tablet 20 mg PO QAM Qty: 30 RF: 2 Referrals: Raymundo Mario ARNP [Primary Care Provider] -
[2020-09-26 17:22] LABS: Troponin I < 0.012 ng/mL (0.01-0.034)
[2020-09-26 17:30] VITALS: BP 144/67; PULSE 68; RESP 15; O2SAT 99
[2020-09-26 17:49] VITALS: BP 141/67; PULSE 70; RESP 24; O2SAT 99
[2020-09-26 18:00] VITALS: BP 139/65; PULSE 76; RESP 18; O2SAT 99
[2020-09-26 18:03] LABS: Bacteria Urine None Seen
[2020-09-26 18:22] LABS: RBC Urine 0-1/HPF (0-5/HPF); Squamous Epithelial Cell Urine 0-1 /HPF (0-5/HPF); WBC Urine 0-1/HPF (0-5/HPF)
[2020-09-26 18:23] LABS: Culture Indicated Urine Cult Not Indicated
[2020-09-26 18:30] VITALS: BP 141/72; PULSE 74; RESP 18; O2SAT 99
== END 2020-09-26 18:44 | disposition home or self-care (01) ==
PROVIDERS: Emergency Provider Emergency Medicine; PCP Registered Nurse Diabetes Educator
DX: R09.81 Nasal congestion (principal); R06.2 Wheezing; R60.0 Localized edema; R05 Cough; R51.9 Headache, unspecified; R07.9 Chest pain, unspecified
CPT/HCPCS: 36415; 71045; 80053; 81003; 81015; 82550; 83690; 84484; 85025; 93005; 99281; 99284

== ENCOUNTER → 2020-11-06 11:54 | Outpatient (CLI) | payer OTHER, MEDICAID, SELFPAY ==
[2020-11-06 13:06] LABS: Hematocrit 40.7 % (36-46); Hemoglobin 13.8 g/dL (12.0-16.0); Mean Corpuscular HGB Conc 33.8 % (30-36); Mean Corpuscular Hemoglobin 29.7 PG (26-34); Mean Corpuscular Volume 87.7 fL (80-100); Platelet Count 290 X10^3/uL (150-400); Red Blood Cell Count 4.64 X10^6/uL (4.0-5.2); Red Cell Distribution Width 13.4 % (11.6-14.8); White Blood Cell Count 8.1 X10^3/uL (4.5-11.0)
[2020-11-06 14:15] LABS: Alanine Aminotransferase 30 IU/L (<35); Albumin 3.8 g/dL (3.5-5.0); Albumin Globulin Ratio 1.3 (1.0-2.8); Alkaline Phosphatase 90 U/L (38-126); Aspartate Aminotransferase 29 IU/L (14-36); BUN Creatinine Ratio 25.4 (6-22); Blood Urea Nitrogen 18 mg/dL (7-17); Carbon Dioxide 27 mmol/L (22-32); Chloride 106 mmol/L (98-107); Cholesterol 173 mg/dL (140-199); Estimated Glomerular Filt Rate > 60.0 mL/min (>60); Glucose 102 mg/dL (70-100); HDL Cholesterol 55 mg/dL (40-60); HEMOLYSIS < 15 (0-50); LDL Cholesterol Calculated 83 mg/dL (<100); Potassium 4.1 mmol/L (3.4-5.1); Sodium 138 mmol/L (137-145); Total Protein 6.8 g/dL (6.3-8.2); Triglycerides 175 mg/dL (35-150)
[2020-11-06 15:29] LABS: Bilirubin Total 0.1 mg/dL (0.2-1.3)
[2020-11-06 16:31] LABS: TSH w/ Reflex to FT4 2.01 uIU/mL (0.47-4.68)
== END ==
PROVIDERS: PCP Registered Nurse Diabetes Educator; Referring Provider Registered Nurse Diabetes Educator; Visit Provider Registered Nurse Diabetes Educator
DX: E03.9 Hypothyroidism, unspecified (principal); E66.9 Obesity, unspecified; R73.01 Impaired fasting glucose; R53.83 Other fatigue; K76.0 Fatty (change of) liver, not elsewhere classified; G47.19 Other hypersomnia
CPT/HCPCS: 36415; 80053; 80061; 83036; 84443; 85027

== ENCOUNTER → 2020-12-10 16:41 | Outpatient (CLI) | payer OTHER, MEDICAID, SELFPAY ==
--- NOTE | 2020-12-10 16:46 | DI.RAD.S_ITS ---
PROCEDURE: XR WRIST RT MIN 3V INDICATIONS: right wrist pain TECHNIQUE: 4 views of the wrist were acquired. COMPARISON: None. FINDINGS: Bones: No acute fracture. Chronic deformity of the 5th metacarpal. Scattered degenerative subchondral sclerosis and spurring. Soft tissues: No suspicious soft tissue calcifications. IMPRESSION: Mild degenerative changes as above. If the patient's pain or other symptoms persist, consider further evaluation with MRI Dictated by: Donald Rzd M.D. on 12/10/2020 at 17:43 Approved by: Donald Rdz M.D. on 12/10/2020 at 17:44
--- NOTE | 2020-12-10 16:46 | DI.RAD.S_ITS ---
PROCEDURE: XR SHOULDER RT MIN 2V INDICATIONS: right shoulder pain TECHNIQUE: 3 views of the shoulder were acquired. COMPARISON: None. FINDINGS: Bones: No fractures or dislocations. No suspicious bony lesions. Visualized ribs appear intact. Soft tissues: No suspicious soft tissue calcifications. IMPRESSION: Negative examination. If the patient's pain or other symptoms persist, consider further evaluation with MRI Dictated by: Donald Rdz M.D. on 12/10/2020 at 17:41 Approved by: Donald Rdz M.D. on 12/10/2020 at 17:42
== END ==
PROVIDERS: PCP Registered Nurse Diabetes Educator; Referring Provider Registered Nurse; Visit Provider Registered Nurse
DX: M25.511 Pain in right shoulder (principal); M25.531 Pain in right wrist
CPT/HCPCS: 73030; 73110

== ENCOUNTER → 2021-08-06 10:07 | Outpatient (CLI) | payer OTHER, MEDICAID, SELFPAY ==
[2021-08-06 12:42] LABS: COVID19 -Nasal RAPID Negative (Negative)
== END ==
PROVIDERS: PCP Registered Nurse Diabetes Educator; Visit Provider Nurse Practitioner Family
DX: Z20.822 Contact with and (suspected) exposure to COVID-19 (principal); R09.81 Nasal congestion
CPT/HCPCS: 87635

== ENCOUNTER → 2021-11-27 11:35 | Outpatient (CLI) | payer OTHER, MEDICAID, SELFPAY ==
[2021-11-27 12:20] LABS: Hematocrit 41.5 % (36-46); Mean Corpuscular HGB Conc 33.7 % (30-36); Mean Corpuscular Hemoglobin 29.3 PG (26-34); Platelet Count 303 X10^3/uL (150-400); Red Blood Cell Count 4.77 X10^6/uL (4.0-5.2); Red Cell Distribution Width 13.3 % (11.6-14.8); White Blood Cell Count 7.6 X10^3/uL (4.5-11.0)
[2021-11-27 12:28] LABS: Appearance Urine UA SL CLOUDY; Bilirubin Urine UA NEGATIVE (NEGATIVE); Color Urine UA YELLOW; Glucose Urine UA TRACE g/dL (Negative); Ketones Urine UA NEGATIVE (NEGATIVE); Leukocyte Esterase Urine UA TRACE (NEGATIVE); Nitrite Urine UA POSITIVE (Negative); Occult Blood Urine UA 2+ (Negative); Protein Urine UA TRACE (Negative); Specific Gravity Urine UA 1.025 (1.000-1.035); Urobilinogen Urine UA 0.2 E.U./dL (0.2)
[2021-11-27 12:38] LABS: Alanine Aminotransferase 30 IU/L (<35); Albumin 4.2 g/dL (3.5-5.0); Albumin Globulin Ratio 1.4 (1.0-2.8); Alkaline Phosphatase 84 U/L (38-126); Aspartate Aminotransferase 27 IU/L (14-36); BUN Creatinine Ratio 17.8 (6-22); Bilirubin Total 0.5 mg/dL (0.2-1.3); Blood Urea Nitrogen 13 mg/dL (7-17); Calcium 8.7 mg/dL (8.4-10.2); Carbon Dioxide 27 mmol/L (22-32); Chloride 103 mmol/L (98-107); Cholesterol 175 mg/dL (140-199); Estimated Glomerular Filt Rate > 60 mL/min (>60); Glucose 115 mg/dL (70-100); HDL Cholesterol 56 mg/dL (40-60); HEMOLYSIS < 15 (0-50); LDL Cholesterol Calculated 98 mg/dL (<100); Potassium 4.5 mmol/L (3.4-5.1); Sodium 138 mmol/L (137-145); Total Protein 7.2 g/dL (6.3-8.2); Triglycerides 103 mg/dL (35-150)
[2021-11-27 12:42] LABS: Bacteria Urine Many (>30); Culture Indicated Urine Specimen Cultured; RBC Urine 1-5/HPF (0-5/HPF); Squamous Epithelial Cell Urine 1-5 /HPF (0-5/HPF); WBC Urine 5-10/HPF (0-5/HPF); pH Urine UA 5.5 (4.5-8.0)
[2021-11-27 12:44] LABS: Hemoglobin A1C% w Est Avg Glu 6.5 % (4.0-6.0)
[2021-11-27 13:09] LABS: TSH w/ Reflex to FT4 1.51 uIU/mL (0.47-4.68)
== END ==
PROVIDERS: PCP Registered Nurse Diabetes Educator; Referring Provider Registered Nurse Diabetes Educator; Visit Provider Registered Nurse Diabetes Educator
DX: E03.9 Hypothyroidism, unspecified (principal); E78.5 Hyperlipidemia, unspecified; K76.0 Fatty (change of) liver, not elsewhere classified; R73.01 Impaired fasting glucose; R82.90 Unspecified abnormal findings in urine
CPT/HCPCS: 36415; 80053; 80061; 81001; 83036; 84443; 85027; 87077; 87086; 87186

== ENCOUNTER → 2022-08-07 14:52 | Outpatient (CLI) | payer OTHER, MEDICAID, SELFPAY ==
[2022-08-07 15:44] LABS: COVID-19 CEPHEID 4-PLEX PCR POSITIVE (Negative); Influenza A - CEPHEID Flu A NEGATIVE (NEGATIVE); Influenza B - CEPHEID Flu B NEGATIVE (NEGATIVE); Respiratory Syncytial Virus Negative (Negative)
== END ==
PROVIDERS: PCP Registered Nurse Diabetes Educator; Visit Provider Student in an Organized Health Care Education/Training Program
DX: J06.9 Acute upper respiratory infection, unspecified (principal)
CPT/HCPCS: 0241U

== ENCOUNTER → 2022-08-21 18:28 | Outpatient (CLI) | payer OTHER, MEDICAID, SELFPAY ==
--- NOTE | 2022-08-21 18:30 | DI.RAD.S_ITS ---
PROCEDURE: XR CHEST 2V INDICATIONS: Adventitious lung sounds LLL, COVID 08/07, reworsened 08/19 TECHNIQUE: 2 views of the chest were acquired. COMPARISON: [facility], CR, XR CHEST 2V, 01/24/2020, 14:01. FINDINGS: Surgical changes and devices: None. Lungs and pleura: Lungs are clear. No pleural effusions or pneumothorax. Mediastinum: Mediastinal contours are normal. Heart size is normal. Bones and chest wall: No suspicious bony abnormalities. Soft tissues appear unremarkable. IMPRESSION: No acute cardiopulmonary process demonstrated radiographically. Dictated by: Kyle Bates M.D. on 08/21/2022 at 19:12 Approved by: Kyle Bates M.D. on 08/21/2022 at 19:12
== END ==
PROVIDERS: PCP Registered Nurse Diabetes Educator; Referring Provider Student in an Organized Health Care Education/Training Program; Visit Provider Student in an Organized Health Care Education/Training Program
DX: U07.1 COVID-19 (principal); J02.9 Acute pharyngitis, unspecified; J06.9 Acute upper respiratory infection, unspecified; R50.9 Fever, unspecified
CPT/HCPCS: 0241U; 71046; 87070; 87880

== ENCOUNTER → 2022-08-21 18:43 | Outpatient (CLI) | payer OTHER, MEDICAID, SELFPAY ==
[2022-08-21 20:13] LABS: COVID-19 CEPHEID 4-PLEX PCR POSITIVE (Negative); Influenza A - CEPHEID Flu A NEGATIVE (NEGATIVE); Influenza B - CEPHEID Flu B NEGATIVE (NEGATIVE); Respiratory Syncytial Virus Negative (Negative)
== END ==
PROVIDERS: PCP Registered Nurse Diabetes Educator; Visit Provider Student in an Organized Health Care Education/Training Program
DX: J02.9 Acute pharyngitis, unspecified (principal); U07.1 COVID-19
CPT/HCPCS: 0241U; 87070

== ENCOUNTER 2022-09-19 08:53 | Emergency (ER) | payer OTHER, MEDICAID, SELFPAY ==
[2022-09-19] VITALS (7 sets, daily range): BP systolic 146–167; BP diastolic 74–88; PULSE 89–100; RESP 15–18; TEMP 36.6; O2SAT 94–98; BMI 37.2
--- NOTE | 2022-09-19 09:05 | DI.RAD.S_ITS ---
PROCEDURE: XR CHEST 1V INDICATIONS: Flu like symptoms TECHNIQUE: One view of the chest was acquired. COMPARISON: [facility], CR, XR CHEST 2V, 08/21/2022, 18:44. FINDINGS: Surgical changes and devices: None. Lungs and pleura: Lungs are clear. No pleural effusions or pneumothorax. Mediastinum: Mediastinal contours appear normal. Heart size is normal. Bones and chest wall: No suspicious bony lesions. Overlying soft tissues appear unremarkable. IMPRESSION: No acute cardiopulmonary pathology. Dictated by: Juaquin Ware M.D. on 09/19/2022 at 9:17 Approved by: Juaquin Ware M.D. on 09/19/2022 at 9:18
--- NOTE | 2022-09-19 09:36 | ED.URI ---
HPI - URI/Sore Throat General Chief Complaint: Upper Respiratory Symptoms Stated Complaint: shortness of breath, wheezing, cough Time Seen by Provider: 09/19/22 09:06 Source: patient Mode of arrival: Ambulatory History of Present Illness HPI Narrative: Patient is a 47-year-old healthy female who presents with upper respiratory like symptoms. She was diagnosed with COVID-19 08/07/2022 she still tested positive on August 21. She is had a persistent ongoing cough since then. She reports that she is using her albuterol at home she is using Tessalon Perles however she has this nonproductive cough. She feels like she can not quite catch her breath. She feels like her chest is tight as well. She is no prior history of reactive airway disease she is a nonsmoker. She denies any fever chills or body aches. She is not having any further infectious symptoms but has a cough that is not going away. She now has slight headache from coughing as well. She is not able to sleep at night due to the cough. Related Data Previous Rx's Medication Instructions Recorded inhalational spacing device (Phong #1 ea 10/17/20 Aerosol [place] Enhancer spacer) Leg stockings #1 ea 12/10/20 albuterol sulfate 90 mcg/actuation 2 inh inhalation Q4-6H PRN 12/16/21 breath activated powder inhaler shortness of breath or wheezing #2 ea estradiol 1 mg tablet 1 mg PO DAILY Surgical menopause 12/16/21 #90 tabs levothyroxine 100 mcg capsule 100 mcg PO DAILY #90 caps 12/16/21 omeprazole 20 mg capsule,delayed 20 mg PO DAILY #90 caps 12/16/21 release cetirizine 10 mg capsule (Zyrtec) 10 mg PO DAILY #30 caps 03/23/22 furosemide 20 mg tablet 20 mg PO QAM PRN edema #90 tabs 03/23/22 benzonatate 100 mg capsule 100 mg PO TID PRN cough 7 days #21 08/07/22 caps benzonatate 100 mg capsule 100 mg PO TID PRN cough 10 days 08/21/22 #30 caps benzonatate 100 mg capsule 100 mg PO BID PRN cough #20 caps 09/16/22 ipratropium bromide 42 mcg (0.06 2 spray intranasal TID 4 days #15 09/16/22 %) nasal spray mL cefdinir 300 mg capsule 300 mg PO Q12H #20 caps 09/19/22 hydrocodone-homatropine 5 mg-1.5 5 ml PO Q6H PRN cough #200 mL 09/19/22 mg/5 mL (5 mL) oral syrup prednisone 20 mg tablet 40 mg PO DAILY #10 tabs 09/19/22 Allergies Allergy/AdvReac Type Severity Reaction Status Date / Time amoxicillin Allergy Unknown Verified 09/16/22 08:01 Penicillins Allergy Unknown Verified 09/16/22 08:01 Review of Systems Review of Systems ROS Unobtainable: All systems reviewed & are unremarkable except as noted in HPI and below Patient History Medical History Dyslipidemia Elevated liver enzymes Endometrial adenocarcinoma Excessive daytime sleepiness Fatigue GERD (gastroesophageal reflux disease) Hypothyroidism Impaired fasting blood sugar NAFLD (nonalcoholic fatty liver disease) Obesity (BMI 30-39.9) Obstructive sleep apnea Perennial allergic rhinitis Peripheral edema PTSD (post-traumatic stress disorder) Right shoulder pain Right wrist pain Snoring Surgical History History of radical hysterectomy Family History Other Obstructive sleep apnea Social History Smoking Status: Former smoker second hand exposure: Yes alcohol intake: current substance use type: does not use Smoking Status: Former smoker tobacco type: vaping alcohol intake frequency: 0-2 drinks per day Substance Use Type: does not use Exam Initial Vital Signs Initial Vital Signs: Vital Signs Temperature 97.9 F 09/19/22 08:58 Pulse Rate 92 H 09/19/22 08:58 Respiratory Rate 15 09/19/22 08:58 Blood Pressure 167/88 H 09/19/22 08:58 Pulse Oximetry 95 09/19/22 08:58 Oxygen Delivery Method 09/19/22 08:58 GENERAL: Alert 47-year-old female and in no acute distress. HEENT: Head atraumatic,EOMI, pupils reactive, face symmetric, moist mucous membranes CARDIOVASCULAR: Regular rate and rhythm without murmurs, rubs or gallops. RESPIRATORY: Slight wheezing bilaterally speaks in full sentences that respiratory distress no tachypnea ABDOMEN: Soft, nontender. Normoactive bowel sounds all 4 quadrants. No guarding or rebound. EXTREMITIES: Normal range of motion, no clubbing or edema. Neurovascularly intact NEUROLOGICAL: Alert and oriented x4.Normal gait and speech. SKIN: Warm, dry, no laceration, no petechiae, no rashes or lesions. Course Orders Ordered: ED Orders 09/19/22 09:05 XR chest 1V Stat Discontinued Medications Albuterol/Ipratropium (Albuterol/Ipratropium 3 Ml Ampul) 3 ml INH NOW ONE Stop: 09/19/22 09:27 Last Admin: 09/19/22 09:59 Dose: 3 ml Documented By: KRIS Ketorolac Tromethamine (Ketorolac 30 Mg/Ml Vial) 30 mg IM NOW ONE Stop: 09/19/22 09:37 Last Admin: 09/19/22 10:01 Dose: 30 mg Documented By: ARSH Vital Signs Vital signs: Vital Signs - 8 hr 09/19/22 08:58 09/19/22 09:59 09/19/22 08:59 Temperature 97.9 F Pulse Rate 92 H 89 100 H Respiratory Rate 15 18 Blood Pressure 167/88 H Pulse Oximetry 95 95 94 Oxygen Delivery Method Room Air Room Air 09/19/22 09:00 09/19/22 09:00 09/19/22 09:30 Temperature Pulse Rate 94 H 95 H Respiratory Rate Blood Pressure 167/88 H Pulse Oximetry 94 94 Oxygen Delivery Method 09/19/22 10:00 09/19/22 10:03 09/19/22 10:03 Temperature Pulse Rate 90 89 Respiratory Rate 18 Blood Pressure 146/74 H Pulse Oximetry 94 98 Oxygen Delivery Method Room Air MDM - URI/Sore Throat Imaging Data Chest x-ray: Radiologist's Impression: Signed Patient: Brooklynn Blanco MR#: [id number] : 1975 Acct:[id number] Age/Sex: 47 / F Date of Service: 09/19/22 Loc: ED Accession Number: [id number] ?? Procedure: XR chest 1V Ordering Provider: Sangita Buenrostro D.O. PROCEDURE:? XR CHEST 1V ? INDICATIONS:? Flu like symptoms ? TECHNIQUE:? One view of the chest was acquired.? ? COMPARISON:? [facility], CR, XR CHEST 2V, 08/21/2022, 18:44. ? FINDINGS:? ? Surgical changes and devices:? None.? ? Lungs and pleura:? Lungs are clear.? No pleural effusions or pneumothorax.? ? Mediastinum:? Mediastinal contours appear normal.? Heart size is normal.? ? Bones and chest wall:? No suspicious bony lesions.? Overlying soft tissues appear unremarkable.? ? IMPRESSION:? No acute cardiopulmonary pathology. ? ? Dictated by: Juaquin Ware M.D. on 09/19/2022 at 9:17 ? ? Approved by: Juaquin Ware M.D. on 09/19/2022 at 9:18 ? MDM Narrative Medical decision making narrative: 47-year-old female history of COVID infection but having persistent cough without active infection symptoms. X-ray does not show any acute pneumonia. She is wheezing. Given DuoNeb treatment here in the ED. We will start her on prednisone and some cough syrup. At this time she does not have any sepsis she is afebrile. Persistent bronchospastic like cough. No need for any further workup. Discharge Plan Departure Patient Disposition: Home Clinical Impression: Reactive airway disease Instructions: DI for Reactive Airway Disease-Adult Activity Restrictions/Additional Instructions: *You have been diagnosed with reactive airway disease *What to do: I hope you feel better soon. Will put you on prednisone taper and give you some cough syrup. Stay hydrated and rest. You should start feeling better soon. *Continue to take medications as directed Prednisone 40 mg once a day for 5 days Hydrocodone/homatropine 5 mL every 6 hours only if needed for severe cough (this will make you very sleepy there is a narcotic mixed in) *Follow up with your primary care provider in 2-3 days or call [phone] *Return to ER if you should have increasing cough shortness of breath [or] any new, worsening or concerning symptoms CONTROLLED SUBSTANCE DISCHARGE (Narcotoic/benzodiazepine/Flexeril/Phenergan) 1. You have been prescribed narcotic medications, it does have acetaminophen/Tylenol/paracetamol in it, DO NOT TAKE MORE THAN 4,00mg in 24 hours of Tylenol. TRAMADOL DOES NOT CONTAIN TYLENOL 2. Please understand that we cannot provide further refills of narcotics, benzodiazepines or controlled substances through the ED and her pain management will need to be through your provider. 3. While on these medications you cannot drive or operate heavy machinery. 4. You cannot sign legal documents or perform any duties such as this. 5. As long as you're taking opiate pain medications he should also be taking a stool softener such as Colace, Dulcolax, MiraLAX or prune juice, to help avoid constipation. Prescriptions: New hydrocodone-homatropine 5-1.5 mg/5 mL (5 mL) syrup 5 ml PO Q6H PRN (Reason: cough) Qty: 200 0RF prednisone 20 mg tablet 40 mg PO DAILY Qty: 10 0RF cefdinir 300 mg capsule 300 mg PO Q12H Qty: 20 0RF No Action benzonatate 100 mg capsule 100 mg PO TID PRN (Reason: cough) 10 Days Qty: 30 1RF benzonatate 100 mg capsule 100 mg PO BID PRN (Reason: cough) Qty: 20 0RF ipratropium bromide 42 mcg (0.06 %) spray,non-aerosol 2 spray intranasal TID 4 Days Qty: 15 0RF Rx Instructions: administer into each nostril benzonatate 100 mg capsule 100 mg PO TID PRN (Reason: cough) 7 Days Qty: 21 1RF (DME) Phong Aerosol [place] Enhancer Spacer See Rx Instructions .ROUTE .MEDSUPPLY Qty: 1 0RF Rx Instructions: As directed furosemide 20 mg tablet 20 mg PO QAM PRN (Reason: edema) Qty: 90 2RF Zyrtec 10 mg capsule 10 mg PO DAILY Qty: 30 10RF levothyroxine 100 mcg capsule 100 mcg PO DAILY Qty: 90 3RF omeprazole 20 mg capsule,delayed release(DR/EC) 20 mg PO DAILY Qty: 90 1RF Rx Instructions: Take one capsule by mouth once a day. albuterol sulfate 90 mcg/actuation aerosol powdr breath activated 2 inh INHALATION Q4-6H PRN (Reason: shortness of breath or wheezing) Qty: 2 3RF estradiol 1 mg tablet 1 mg PO DAILY Qty: 90 1RF Rx Instructions: Take once daily. (DME) Leg stockings See Rx Instructions .Route .MEDSUPPLY Qty: 1 0RF Rx Instructions: As directed Referrals: Raymundo Mario ARNP [Primary Care Provider] - Stand Alone Forms: Patient Portal/API
[2022-09-19] MEDS: ALBUTEROL/IPRATROPIUM 3 ML AMPUL INH (09:59)
[2022-09-19] MEDS: KETOROLAC 30 MG/ML VIAL IM (10:01)
--- NOTE | 2022-09-19 10:17 | RT ---
pt on room air, no distress noted and arnol neb tx well
== END 2022-09-19 10:32 | disposition home or self-care (01) ==
PROVIDERS: Emergency Provider Emergency Medicine; PCP Registered Nurse Diabetes Educator
DX: J45.909 Unspecified asthma, uncomplicated (principal); Z86.16 Personal history of COVID-19
CPT/HCPCS: 71045; 94640; 96372; 99283; 99284; J1885

== ENCOUNTER → 2022-12-29 14:22 | Outpatient (CLI) | payer OTHER, MEDICAID, SELFPAY ==
[2022-12-29 15:07] LABS: Hematocrit 44.1 % (36-46); Mean Corpuscular HGB Conc 34.1 % (30-36); Mean Corpuscular Hemoglobin 28.8 PG (26-34); Mean Corpuscular Volume 84.6 fL (80-100); Platelet Count 316 X10^3/uL (150-400); Red Blood Cell Count 5.21 X10^6/uL (4.0-5.2); Red Cell Distribution Width 13.2 % (11.6-14.8); White Blood Cell Count 9.1 X10^3/uL (4.5-11.0)
[2022-12-29 15:11] LABS: Appearance Urine UA CLEAR; Bilirubin Urine UA NEGATIVE (NEGATIVE); Color Urine UA YELLOW; Glucose Urine UA NEGATIVE (Negative); Ketones Urine UA NEGATIVE (NEGATIVE); Leukocyte Esterase Urine UA NEGATIVE (NEGATIVE); Nitrite Urine UA NEGATIVE (Negative); Occult Blood Urine UA 1+ (Negative); Protein Urine UA TRACE (Negative); Specific Gravity Urine UA 1.025 (1.000-1.035); Urobilinogen Urine UA 0.2 E.U./dL (0.2)
[2022-12-29 15:22] LABS: Bacteria Urine Few (2-10); Culture Indicated Urine Cult Not Indicated; Mucus Urine 2+ (Negative); RBC Urine 0-1/HPF (0-5/HPF); Squamous Epithelial Cell Urine 1-5 /HPF (0-5/HPF); WBC Urine 1-5/HPF (0-5/HPF)
[2022-12-29 15:34] LABS: Alanine Aminotransferase 39 IU/L (<35); Albumin 4.6 g/dL (3.5-5.0); Albumin Globulin Ratio 1.4 (1.0-2.8); Alkaline Phosphatase 103 U/L (38-126); Aspartate Aminotransferase 33 IU/L (14-36); BUN Creatinine Ratio 14.9 (6-22); Bilirubin Total 0.8 mg/dL (0.2-1.3); Blood Urea Nitrogen 13 mg/dL (7-17); Calcium 9.4 mg/dL (8.4-10.2); Carbon Dioxide 28 mmol/L (22-32); Chloride 101 mmol/L (98-107); Cholesterol 220 mg/dL (140-199); Estimated Glomerular Filt Rate > 60 mL/min (>60); Globulin 3.3 g/dL (1.7-4.1); Glucose 96 mg/dL (70-100); HDL Cholesterol 66 mg/dL (40-60); HEMOLYSIS < 15 (0-50); LDL Cholesterol Calculated 133 mg/dL (<100); Potassium 4.4 mmol/L (3.4-5.1); Sodium 137 mmol/L (137-145); Total Protein 7.9 g/dL (6.3-8.2); Triglycerides 104 mg/dL (35-150)
[2022-12-29 16:02] LABS: TSH w/ Reflex to FT4 2.24 uIU/mL (0.47-4.68)
[2022-12-30 06:07] LABS: x Labcorp Estim. Avg Glu (eAG) 134 mg/dL (.); x Labcorp Hemoglobin A1c 6.3 % (4.8-5.6)
== END ==
PROVIDERS: PCP Registered Nurse Diabetes Educator; Referring Provider Registered Nurse Diabetes Educator; Visit Provider Registered Nurse Diabetes Educator
DX: R74.8 Abnormal levels of other serum enzymes (principal); E03.9 Hypothyroidism, unspecified; R73.01 Impaired fasting glucose; E78.5 Hyperlipidemia, unspecified; R30.0 Dysuria
CPT/HCPCS: 36415; 80053; 80061; 81001; 83036; 84443; 85027

== ENCOUNTER → 2023-04-26 17:11 | Outpatient (CLI) | payer OTHER, MEDICAID, SELFPAY ==
[2023-04-26 19:57] LABS: COVID-19 CEPHEID 4-PLEX PCR POSITIVE (Negative); Influenza A - CEPHEID Flu A NEGATIVE (NEGATIVE); Influenza B - CEPHEID Flu B NEGATIVE (NEGATIVE); Respiratory Syncytial Virus Negative (Negative)
== END ==
PROVIDERS: PCP Registered Nurse Diabetes Educator; Visit Provider Physician Assistant
DX: J06.9 Acute upper respiratory infection, unspecified (principal)
CPT/HCPCS: 0241U; C9803

== ENCOUNTER 2023-07-14 15:41 | Emergency (ER) | payer OTHER, MEDICAID, SELFPAY ==
[2023-07-14 16:27] VITALS: BP 132/70; PULSE 89; RESP 18; TEMP 37.2; O2SAT 99; BMI 35.2
--- NOTE | 2023-07-14 16:32 | DI.RAD.S_ITS ---
PROCEDURE: XR SHOULDER RT MIN 2V INDICATIONS: pain after fall TECHNIQUE: 3 views of the shoulder were acquired. COMPARISON: [facility], CR, XR SHOULDER RT MIN 2V, 12/10/2020, 16:51. FINDINGS: Bones: No fractures or dislocations. No suspicious bony lesions. Visualized ribs appear intact. Soft tissues: No suspicious soft tissue calcifications. IMPRESSION: No acute bony abnormality. Dictated by: Evelyn Tierney M.D. on 07/14/2023 at 19:47 Approved by: Evelyn Tierney M.D. on 07/14/2023 at 19:48
--- NOTE | 2023-07-14 20:32 | ED.GENADULT ---
HPI - General Adult General Chief complaint: Extremity Injury, Upper Stated complaint: rt shoulder pain, no known injury Time Seen by Provider: 07/14/23 19:57 Source: patient Mode of arrival: Ambulatory History of Present Illness HPI narrative: Patient is a 48-year-old female who is here for evaluation of right shoulder pain. 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 She is also right-hand dominant and has been using her right arm and right shoulder quite a bit at work. There was no specific injury that caused the discomfort. No fall. She states she has pain in the top of her shoulder into the outside back of her shoulder. Her right elbow and right wrist are unremarkable. Related Data Home Medications Medication Instructions Recorded Confirmed ipratropium bromide 42 mcg (0.06 spray intranasal 12/29/22 02/16/23 %) nasal spray Previous Rx's Medication Instructions Recorded inhalational spacing device (Phong #1 ea 10/17/20 Aerosol [place] Enhancer spacer) Leg stockings #1 ea 12/10/20 albuterol sulfate 90 mcg/actuation 2 inh inhalation Q4-6H PRN 12/29/22 breath activated powder inhaler shortness of breath or wheezing #2 ea cetirizine 10 mg capsule (Zyrtec) 10 mg PO DAILY #30 caps 12/29/22 cyclobenzaprine 5 mg tablet 5 mg PO TID PRN muscle spasm #30 12/29/22 tabs fluticasone propionate 50 2 spray intranasal DAILY #16 grams 12/29/22 mcg/actuation nasal spray,suspension (Flonase Allergy Relief) levothyroxine 100 mcg capsule 100 mcg PO DAILY #90 caps 02/09/23 omeprazole 20 mg capsule,delayed 20 mg PO DAILY #90 caps 02/16/23 release estradiol 1 mg tablet 1 mg PO DAILY Surgical menopause 06/11/23 #30 tabs Allergies Allergy/AdvReac Type Severity Reaction Status Date / Time amoxicillin Allergy Unknown Verified 02/16/23 11:20 Penicillins Allergy Unknown Verified 02/16/23 11:20 Review of Systems Constitutional Constitutional: Reports system reviewed and no additional complaints, except as documented Musculoskeletal Musculoskeletal: Reports system reviewed and no additional complaints, except as documented Integumentary/Breasts Skin/Breast: Reports system reviewed and no additional complaints, except as documented Neurologic Neurologic: Reports system reviewed and no additional complaints, except as documented Hematologic/Lymphatic On Anticoagulants: No Patient History Medical History Dyslipidemia PTSD (post-traumatic stress disorder) Right wrist pain Right shoulder pain Impaired fasting blood sugar Snoring Obesity (BMI 30-39.9) NAFLD (nonalcoholic fatty liver disease) Peripheral edema Elevated liver enzymes Obstructive sleep apnea Fatigue Excessive daytime sleepiness Endometrial adenocarcinoma Hypothyroidism GERD (gastroesophageal reflux disease) Perennial allergic rhinitis Surgical History History of radical hysterectomy Family History Other Obstructive sleep apnea Social History Smoking Status: Former smoker second hand exposure: Yes alcohol intake: current substance use type: does not use Smoking Status: Former smoker tobacco type: vaping alcohol intake frequency: 0-2 drinks per day Substance Use Type: does not use Exam Initial Vital Signs Initial Vital Signs: Vital Signs Temperature 99 F 07/14/23 16:27 Pulse Rate 89 07/14/23 16:27 Respiratory Rate 18 07/14/23 16:27 Blood Pressure 132/70 07/14/23 16:27 Pulse Oximetry 99 07/14/23 16:27 Oxygen Delivery Method Room Air 07/14/23 16:27 HENMT Head: normal to inspection and normocephalic Resp Effort & Inspection: normal respiratory effort Auscultation: clear to auscultation bilaterally Cardio Rate: regular rate Rhythm: regular rhythm Neuro Sensory Exam: no sensory deficits noted Extrem Other: Discomfort with palpation on both the superior lateral and posterior portions of the shoulder. Decreased range of motion because of the discomfort. Course Orders Ordered: ED Orders 07/14/23 16:32 XR shoulder RT min 2V Stat Vital Signs Vital signs: Vital Signs - 8 hr 07/14/23 20:38 07/14/23 20:45 Pulse Rate 59 L 64 Respiratory Rate 16 16 Blood Pressure 139/81 139/81 Pulse Oximetry 99 99 Oxygen Delivery Method Room Air Room Air Medical Decision Making Imaging Data Extremity x-ray #1: Radiologist's Impression: PROCEDURE: XR SHOULDER RT MIN 2V INDICATIONS: pain after fall TECHNIQUE: 3 views of the shoulder were acquired. COMPARISON: [facility], CR, XR SHOULDER RT MIN 2V, 12/10/2020, 16:51. FINDINGS: Bones: No fractures or dislocations. No suspicious bony lesions. Visualized ribs appear intact. Soft tissues: No suspicious soft tissue calcifications. IMPRESSION: No acute bony abnormality. MDM Narrative Medical decision making narrative: X-rays unremarkable. No fractures or dislocations. Neurovascularly intact. Difficult to assess whether or not this is a biceps or rotator cuff or even a potential labrum issue because any sort of palpation or movement of the right shoulder causes discomfort. Will discharge patient home with symptom treatment. Will also recommend rest. If symptoms are persistent she will need to follow up with her primary doctor to discuss a referral to see Physical therapy or potentially advanced imaging such as an MRI. Discharge Plan Departure Patient Disposition: Home Clinical Impression: Acute shoulder pain Instructions: How To Perform RICE (Rest, Ice, Compress, Elevate) Activity Restrictions/Additional Instructions: I do recommend that you take Tylenol for any discomfort. You can also try the other conservative measures such as heat/ice. Contact your primary doctor for a follow-up. Return to the emergency department for new or worsening symptoms. Prescriptions: No Action (DME) Phong Aerosol [place] Enhancer Spacer See Rx Instructions .ROUTE .MEDSUPPLY Qty: 1 0RF Rx Instructions: As directed levothyroxine 100 mcg capsule 100 mcg PO DAILY Qty: 90 3RF estradiol 1 mg tablet 1 mg PO DAILY Qty: 30 2RF Rx Instructions: 3 month supply only -- patient needs to follow up with [employer] for future fills. Thanks. 06/11/23. (DME) Leg stockings See Rx Instructions .Route .MEDSUPPLY Qty: 1 0RF Rx Instructions: As directed ipratropium bromide 42 mcg (0.06 %) spray,non-aerosol intranasal cyclobenzaprine 5 mg tablet 5 mg PO TID PRN (Reason: muscle spasm) Qty: 30 2RF albuterol sulfate 90 mcg/actuation aerosol powdr breath activated 2 inh INHALATION Q4-6H PRN (Reason: shortness of breath or wheezing) Qty: 2 3RF fluticasone propionate [Flonase Allergy Relief] 50 mcg/actuation spray,suspension 2 spray intranasal DAILY Qty: 16 11RF Rx Instructions: administer into each nostril Zyrtec 10 mg capsule 10 mg PO DAILY Qty: 30 11RF omeprazole 20 mg capsule,delayed release(DR/EC) 20 mg PO DAILY Qty: 90 3RF Referrals: Raymundo Mario ARNP [Primary Care Provider] - Stand Alone Forms: Patient Portal/API, Work Release Note
[2023-07-14 20:38] VITALS: BP 139/81; PULSE 59; RESP 16; O2SAT 99
[2023-07-14 20:45] VITALS: BP 139/81; PULSE 64; RESP 16; O2SAT 99
== END 2023-07-14 20:47 | disposition home or self-care (01) ==
PROVIDERS: Emergency Provider Emergency Medicine; PCP Registered Nurse Diabetes Educator
DX: M25.511 Pain in right shoulder (principal)
CPT/HCPCS: 73030; 99281; 99282

== ENCOUNTER 2023-08-06 15:07 | Emergency (ER) | payer OTHER, MEDICAID, SELFPAY ==
[2023-08-06 15:33] VITALS: BP 140/79; PULSE 89; RESP 16; TEMP 36.9; O2SAT 98; BMI 32.9
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
[2023-08-06 17:07] VITALS: BP 138/72; PULSE 80; RESP 24; O2SAT 98
[2023-08-06] MEDS: KETOROLAC 30 MG/ML VIAL 15 MG IM (17:13)
== END 2023-08-06 17:20 | disposition home or self-care (01) ==
PROVIDERS: Emergency Provider Physician Assistant Medical; PCP Registered Nurse Diabetes Educator
DX: S13.4XXA Sprain of ligaments of cervical spine, initial encounter (principal); M54.6 Pain in thoracic spine; V89.2XXA Person injured in unspecified motor-vehicle accident, traffic, initial encounter
CPT/HCPCS: 73030; 96372; 99283; J1885

== ENCOUNTER → 2023-08-25 17:38 | Outpatient (CLI) | payer OTHER, MEDICAID, SELFPAY | PROVIDERS: PCP Registered Nurse Diabetes Educator; Visit Provider Nurse Practitioner Family | DX: J02.9 Acute pharyngitis, unspecified (principal) | CPT/HCPCS: 87070 ==

== ENCOUNTER 2023-11-11 16:02 | Emergency (ER) | payer OTHER, MEDICAID, SELFPAY ==
[2023-11-11 16:06] VITALS: BP 170/81; PULSE 76; RESP 16; TEMP 36.9; O2SAT 100; BMI 33.6
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
[2023-11-11 16:45] LABS: Bacteria Urine Occasional (0-1); RBC Urine None Seen (0-5/HPF); Squamous Epithelial Cell Urine None Seen (0-5/HPF); Transitional Epi Cells Urine None Seen (0-5/HPF); Urine Volume 10mL (spun); WBC Urine None Seen (0-5/HPF)
[2023-11-11 16:46] LABS: Culture Indicated Urine Cult Not Indicated
[2023-11-11 18:06] VITALS: BP 149/83; PULSE 65; RESP 14; O2SAT 100
== END 2023-11-11 18:09 | disposition home or self-care (01) ==
PROVIDERS: Emergency Provider Student in an Organized Health Care Education/Training Program; PCP Registered Nurse Diabetes Educator
DX: L30.9 Dermatitis, unspecified (principal); R03.0 Elevated blood-pressure reading, without diagnosis of hypertension; F43.9 Reaction to severe stress, unspecified; R35.0 Frequency of micturition
CPT/HCPCS: 81003; 81015; 82962; 87086; 99282

== ENCOUNTER → 2024-02-14 09:44 | Outpatient (CLI) | payer OTHER, MEDICAID, SELFPAY ==
[2024-02-14 12:21] LABS: Hematocrit 40.8 % (36-46); Hemoglobin 13.9 g/dL (12.0-16.0); Mean Corpuscular Hemoglobin 29.8 PG (26-34); Mean Corpuscular Volume 87.5 fL (80-100); Platelet Count 316 X10^3/uL (150-400); Red Blood Cell Count 4.67 X10^6/uL (4.0-5.2); Red Cell Distribution Width 12.8 % (11.6-14.8); White Blood Cell Count 8.4 X10^3/uL (4.5-11.0)
[2024-02-14 14:17] LABS: Hemoglobin A1C% w Est Avg Glu 5.7 % (4.0-6.0)
[2024-02-14 14:45] LABS: Alanine Aminotransferase 20 IU/L (<35); Albumin 3.9 g/dL (3.5-5.0); Albumin Globulin Ratio 1.3 (1.0-2.8); Alkaline Phosphatase 100 U/L (38-126); Aspartate Aminotransferase 21 IU/L (14-36); BUN Creatinine Ratio 20.5 (6-22); Bilirubin Total 0.3 mg/dL (0.2-1.3); Blood Urea Nitrogen 18 mg/dL (7-17); Calcium 8.7 mg/dL (8.4-10.2); Carbon Dioxide 27 mmol/L (22-32); Chloride 106 mmol/L (98-107); Cholesterol 171 mg/dL (140-199); Estimated Glomerular Filt Rate > 60 mL/min (>60); Globulin 2.9 g/dL (1.7-4.1); Glucose 101 mg/dL (70-100); HDL Cholesterol 63 mg/dL (40-60); HEMOLYSIS < 15 (0-50); LDL Cholesterol Calculated 77 mg/dL (<100); Potassium 4.3 mmol/L (3.4-5.1); Sodium 138 mmol/L (137-145); Total Protein 6.8 g/dL (6.3-8.2); Triglycerides 153 mg/dL (35-150)
[2024-02-14 15:04] LABS: TSH w/ Reflex to FT4 2.15 uIU/mL (0.47-4.68)
== END ==
PROVIDERS: PCP Registered Nurse Diabetes Educator; Referring Provider Registered Nurse Diabetes Educator; Visit Provider Registered Nurse Diabetes Educator
DX: E78.5 Hyperlipidemia, unspecified (principal); R73.01 Impaired fasting glucose; K76.0 Fatty (change of) liver, not elsewhere classified; E03.9 Hypothyroidism, unspecified; I10 Essential (primary) hypertension
CPT/HCPCS: 36415; 80053; 80061; 80076; 83036; 84443; 85027

== ENCOUNTER → 2025-02-21 12:07 | Outpatient (CLI) | payer OTHER, SELFPAY ==
[2025-02-21 13:08] LABS: Hematocrit 41.3 % (36-46); Hemoglobin 14.1 g/dL (12.0-16.0); Mean Corpuscular HGB Conc 34.1 % (30-36); Mean Corpuscular Hemoglobin 29.8 PG (26-34); Mean Corpuscular Volume 87.5 fL (80-100); Platelet Count 314 X10^3/uL (150-400)
[2025-02-21 13:17] LABS: Hemoglobin A1C% w Est Avg Glu 6.2 % (4.0-6.0)
[2025-02-21 13:28] LABS: Alanine Aminotransferase 34 IU/L (<35); Albumin 4.3 g/dL (3.5-5.0); Albumin Globulin Ratio 1.5 (1.0-2.8); Alkaline Phosphatase 86 U/L (38-126); Blood Urea Nitrogen 14 mg/dL (7-17); Calcium 9.0 mg/dL (8.4-10.2); Carbon Dioxide 24 mmol/L (22-32); Chloride 105 mmol/L (98-107); Cholesterol 170 mg/dL (140-199); Estimated Glomerular Filt Rate > 60 mL/min (>60); Globulin 2.9 g/dL (1.7-4.1); Glucose 119 mg/dL (70-99); HDL Cholesterol 62 mg/dL (40-60); HEMOLYSIS < 15 (0-50); Potassium 4.8 mmol/L (3.4-5.1); Sodium 135 mmol/L (137-145); Total Protein 7.2 g/dL (6.3-8.2); Triglycerides 77 mg/dL (35-150)
[2025-02-21 13:59] LABS: TSH w/ Reflex to FT4 0.95 uIU/mL (0.47-4.68)
== END ==
PROVIDERS: PCP Registered Nurse Diabetes Educator; Referring Provider Registered Nurse Diabetes Educator; Visit Provider Registered Nurse Diabetes Educator
DX: I10 Essential (primary) hypertension (principal); E03.9 Hypothyroidism, unspecified; R73.01 Impaired fasting glucose; R74.8 Abnormal levels of other serum enzymes; K76.0 Fatty (change of) liver, not elsewhere classified
CPT/HCPCS: 36415; 80053; 80061; 83036; 84443; 85027

== ENCOUNTER → 2025-02-28 12:40 | Outpatient (CLI) | payer OTHER, SELFPAY ==
--- NOTE | 2025-02-28 12:41 | DI.RAD.S_ITS ---
PROCEDURE: XR HAND RT MIN 3V INDICATIONS: eval bilateral CTS, R wrist and thumb pain TECHNIQUE: 3 views of the hand(s) acquired. COMPARISON: None. FINDINGS: Bones: Slight deformity of the distal scaphoid and 5th metatarsal neck may represent minimally malunified old fracture Joints: The joint spaces are normal in width and alignment without arthritic change. Soft tissues: No soft tissue abnormality. IMPRESSION: Chronic findings Dictated by: Gurdeep Hawthorne M.D. on 03/01/2025 at 12:11 Approved by: Gurdeep Hawthorne M.D. on 03/01/2025 at 12:12
--- NOTE | 2025-02-28 12:41 | DI.RAD.S_ITS ---
PROCEDURE: XR WRIST RT MIN 3V INDICATIONS: eval bilateral CTS, R wrist and thumb pain TECHNIQUE: Four views of the right wrist were acquired. COMPARISON: [facility], , XR WRIST RT MIN 3V, 12/10/2020, 16:56. FINDINGS: Bones: There are no osseous abnormalities Joints: Mild degeneration distal radial ulnar STT and 1st CMC joint. Soft tissues: No soft tissue abnormality. IMPRESSION: Mild degeneration Dictated by: Gurdeep Hawthorne M.D. on 03/01/2025 at 12:13 Approved by: Gurdeep Hawthorne M.D. on 03/01/2025 at 12:14
--- NOTE | 2025-02-28 12:41 | DI.RAD.S_ITS ---
PROCEDURE: XR WRIST LT MIN 3V INDICATIONS: eval bilateral CTS, R wrist and thumb pain TECHNIQUE: Four views of the left wrist were acquired . COMPARISON: [facility], CR, XR WRIST RT MIN 3V, 12/10/2020, 16:56. FINDINGS: Bones: There are no osseous abnormalities Joints: The joint spaces are normal in width and alignment without arthritic change. Soft tissues: No soft tissue abnormality. IMPRESSION: Normal. Dictated by: Gurdeep Hawthorne M.D. on 03/01/2025 at 12:12 Approved by: Gurdeep Hawthorne M.D. on 03/01/2025 at 12:13
--- NOTE | 2025-02-28 12:41 | DI.RAD.S_ITS ---
PROCEDURE: XR HAND LT MIN 3V INDICATIONS: eval bilateral CTS, R wrist and thumb pain TECHNIQUE: 3 views of the hand(s) acquired. COMPARISON: None. FINDINGS: Bones: There are no osseous abnormalities Joints: The joint spaces are normal in width and alignment without arthritic change. Soft tissues: No soft tissue abnormality. IMPRESSION: Normal. Dictated by: Gurdeep Hawthorne M.D. on 03/01/2025 at 12:10 Approved by: Gurdeep Hawthorne M.D. on 03/01/2025 at 12:11
== END ==
PROVIDERS: PCP Registered Nurse Diabetes Educator; Referring Provider Registered Nurse Diabetes Educator; Visit Provider Registered Nurse Diabetes Educator
DX: G56.03 Carpal tunnel syndrome, bilateral upper limbs (principal); M79.644 Pain in right finger(s); M25.531 Pain in right wrist; M19.031 Primary osteoarthritis, right wrist
CPT/HCPCS: 73110; 73130

== ENCOUNTER → 2025-06-11 14:14 | Outpatient (CLI) | payer OTHER, SELFPAY ==
[2025-06-11 15:52] LABS: Influenza A - CEPHEID Flu A NEGATIVE (NEGATIVE); Influenza B - CEPHEID Flu B NEGATIVE (NEGATIVE)
[2025-06-11 15:54] LABS: COVID-19 CEPHEID 4-PLEX PCR Negative (Negative)
== END ==
PROVIDERS: PCP Registered Nurse Diabetes Educator; Visit Provider Registered Nurse
DX: R05.1 Acute cough (principal)
CPT/HCPCS: 87637